=== PATIENT | male | born 2005 | race Caucasian/White ===

== ENCOUNTER → 2025-02-07 18:20 | Outpatient (BNV) | payer OTHER, SELFPAY | PROVIDERS: Visit Provider Radiology Diagnostic Radiology | DX: S73.192A Other sprain of left hip, initial encounter (principal) | CPT/HCPCS: 73721 ==

== ENCOUNTER 2025-02-07 19:16 | Outpatient (REF) | payer OTHER, SELFPAY ==
--- NOTE | ~2025-02-07 | MR_ITS ---
CLINICAL HISTORY: SPORT INJURY LEFT HIP; STRONG MR left hip without gadolinium Comparison: None provided Findings: No acute fracture or pathologic bone lesion. No femoral neck bony protuberances. Normal acetabular version. No effusion. Irregular high T2 signal intensity involves the anterosuperior labrum with paralabral cyst formation. No tendon or muscle abnormalities. IMPRESSION: Left hip labral tear. This document has been electronically signed by: Tamera Mondragon MD on 02/07/2025 20:43:43
--- OUTSIDE RECORDS SUMMARY | 2025-02-07 19:25 | XMS_ITS | Encounter Summary ---
Author Organization [facility] Address [address] [place] [address] Phone Care Team Providers Care Power Equipment Mechanics Instructor Name Role Phone Antione Jeter MD Primary Care Provide r Antione Jeter MD Unavailable Encounter Details Date Type Department Care Team (Late st Contact Info) Description 01/03/2025 Orders Only [facility] Pediatrics [address] [facility], [address] [place], [place] [phone] Antione Jeter MD [address] [place] [address] [email or web address] Social History Tobacco Use Types Packs/Day Years Used Date Smoking Tobacco: Never Smokeless Tobacco: Never Alcohol Use Standard Drinks/Week Comments Never 0 (1 standard drink = 0.6 oz pur e alcohol) Education Answer Date Recorded Are you interested in more education? Not on heather e 10/06/2022 Are you concerned about learning? Not on file 10/06/2022 No 10/06/2022 No 10/06/2022 Digital Access Answer Date Recorded No 11/01/2022 No 11/01/2022 Reliable internet access at home? Not on file 11/01/2022 Device with a working camera? Not on file Intimate Partner Violence Answer Date R ecorded Are you denied basic needs s uch as food, clothing, or medical care? No 10/16/2024 In the past 12 months have y ou been in a relationship with a person who hurts, threatens, or tries to control you? No 10/16/2024 Are you denied basic needs s uch as food, clothing, or medical care? No 10/16/2024 In the past 12 months have y ou been in a relationship with a person who hurts, threatens, or tries to control you? No 10/16/2024 Sex and Gender Information Value Date Recorded Sex Assigned at Not on file Legal Sex Male 8:03 PM EST Gender Identity Not on file Sexual Orientation Not on file documented as of this encounter Plan of Treatment Not on file documented as of this encounter Visit Diagnoses Not on filedocumented in this encounter Care Teams Power Equipment Mechanics Instructor Relationship Specialty Start Date End Date Antione Jeter MD [address] [place] [address] [email or web address] PCP - General Pediatrics 04/04/18 Antione Jeter MD [address] [place] [address] [email or web address] Insurance Assigned Provider 09/16/23 documented as of this encounter Additional Source Comments The information contained in this document represents components of the legal health record. It is not the complete legal health record.[facility]
--- OUTSIDE RECORDS SUMMARY | 2025-02-07 19:25 | XMS_ITS | Encounter Summary ---
Author Organization [facility] Address [address] [place] [address] Phone Care Team Providers Care Manager Program Name Role Phone Antoine Jeter MD Primary Care Provide r Antione Jeter MD Unavailable Encounter Details Date Type Department Care Team (Late st Contact Info) Description 10/16/2024 Procedure Pass [facility] [address] [place] [id number] Social History Tobacco Use Types Packs/Day Years [...] on filedocumented in this encounter Care Teams Manager Program Relationship Specialty Start Date End Date Antione Jeter MD [address] [place] [address] [email or web address] PCP - General Pediatrics 04/04/18 Antione Jeter MD [address] [place] [address] [email or web address] Insurance Assigned Provider 09/16/23 documented as of this encounter Additional Source Comments The information contained in this document represents components of the legal health record. It is not the complete legal health record.[facility]
--- OUTSIDE RECORDS SUMMARY | 2025-02-07 19:25 | XMS_ITS | Encounter Summary ---
Author Organization [facility] Address [address] [facility] [address] [place] [phone] Phone Care Team Providers Care Tie In Hand Name Role Phone Antione Jeter MD Primary Care Provide r Antione Jeter MD Unavailable Encounter Details Date Type Department Care Team (Late st Contact Info) Description 06/08/2020 Procedure Pass [facility] [address] [place] [address] Social History Tobacco Use Types Packs/Day Years Used Date Smoking Tobacco: Never Smokeless Tobacco: Never Alcohol Use Standard Drinks/Week Comments Never 0 (1 standard drink = 0.6 oz pur e alcohol) Sex and Gender Information Value Date Recorded Sex Assigned at Not on file Legal Sex Male 8:03 PM EST Gender Identity Not on file Sexual Orientation Not on file documented as of this encounter Plan of Treatment Not on file documented as of this encounter Visit Diagnoses Not on filedocumented in this encounter Care Teams Tie In Hand Relationship Specialty Start Date End Date Antione Jeter MD [address] [place] [address] [email or web address] PCP - General Pediatrics 04/04/18 Antione Jeter MD [address] [place] [address] [email or web address] Insurance Assigned Provider 09/16/23 documented as of this encounter Additional Source Comments The information contained in this document represents components of the legal health record. It is not the complete legal health record.[facility]
--- OUTSIDE RECORDS SUMMARY | 2025-02-07 19:25 | XMS_ITS | Clinical Summary ---
Author Organization [facility] [email or web address] Address [address] [facility] [place] [address] Care Team Providers Care Shredder Tender Peat Name Role Phone Unavailable Primary Care Provider Unavailabl e Allergies No known active allergies Medications No known medications Social History Tobacco Use Types Packs/Day Years Used Date Smoking Tobacco: Never Assessed Sex and Gender Information Value Date Recorded Sex Assigned at Not on file Legal Sex Male 7:22 AM EDT Gender Identity Not on file Sexual Orientation Not on file Last Filed Vital Signs Vital Sign Reading Time Taken Comments Blood Pressure - - Pulse 75 10/08/2020 4:19 PM EDT Temperature 36.9 C (98.5 F) 10/08/2020 4:19 PM EDT Respiratory Rate - - Oxygen Saturation 100% 10/08/2020 4:19 PM EDT Inhaled Oxygen Concentration - - Weight - - Height - - Body Mass Index - - Plan of Treatment Health Maintenance Due Date Last Done Comments Depression: Screening Annually using PHQ-2/9 in Adults 18 yrs or above (or HM Modifier)([facility]) 2022 Hepatitis C Virus Infection in Adolescents and Adults: Screening (or Modifier) ([facility]) 2022 SDOH Screening Reminder: Annually for all adults ([facility]) 2022 Tobacco Smoking Cessation: i n Adults excluding Women: Behavioral and Pharmacotherapy Interventions ([facility]) 2022 COVID-19 Vaccine Screening: Initial Series and Booster Status ([facility]) (2023- season) 2024 Flu Vaccination: Yearly for ages 18mos through 64 years (or Modifier)([facility]) 01/10/2025 DTaP/Tdap/Td Vaccines ([facility]) (7 - Td or Tdap) 04/01/2025 04/01/2015, 05/15/2009, 06/23/2005, Additional history exists Zoster/Shingles Vaccine Series Screening: Adults aged 18+ yrs (or HM Modifiers)([facility] ) (1 of 2) 2054 03/25/2009, 03/24/2005 Pneumococcal Vaccination Screening: Pts 0-19 & 19-49 yrs of age ([facility] ) Aged Out No longer eligible based on patient's age to complete this topic Medical Devices Not on file Insurance [facility]
--- OUTSIDE RECORDS SUMMARY | 2025-02-07 19:25 | XMS_ITS | Clinical Summary ---
Author Organization [facility] Address [address] [place] [address] Phone Care Team Providers Care Tool Polisher Name Role Phone Antione Jeter MD Primary Care Provide r Antione Jeter MD Unavailable Allergies Active Allergy Reactions Criticality Noted Date Comments Pollen Extracts 01/22/2016 ENVIRONMENTAL ALLERGIES Medications cetirizine (ZYRTEC) 10 MG tablet Take 10 mg by mouth daily. Active sertraline (ZOLOFT) 50 MG tabletIndicatio ns:anxiety with depression Take by mouth daily. Indications: anxiousness associated with depression Active buPROPion (WELLBUTRIN XL) 300 MG ER 24 hr tabletIndicatio ns:anxiety with depression Take 300 mg by mouth daily. Indications: anxiousness associated with depression Active acetaminophen (TYLENOL) 325 mg tablet Take 2 tablets (650 mg total) by mouth every 6 (six) hours as needed for pain (specific location in comments). 5 Active ibuprofen (ADVIL,MOTRIN) 200 MG tablet Take 2 tablets (400 mg total) by mouth every 6 (six) hours as needed for pain (specific location in comments). 5 Active betamethasone valerate 0.1 % ointmentIndicat ions:Eczema of both hands Apply topically 2 (two) times a day. Use on the hands for the next 7-14 days as needed for itchy rash 45 g Active Active Problems Problem Noted Date Diagnosed Date Anxiety and depression 01/06/2025 Assessment & Plan (01/06/2025 5:36 PM EDT): Managed by outside psych Well managed on wellbutrin and zoloft Seasonal allergies 04/23/2019 Encounters Date Type Department Care Team Description 01/28/2025 12:40 PM EDT Telemedicine [facility] [address] [place] [address] Perez Ann MD Eczema of both hands (Primary Dx) 01/06/2025 3:00 PM EDT Office Visit [address], [address] [address] Petra Roldan MD Well adolescent visit (Primary Dx); Screening examination for STI; Need for vaccination; Anxiety and depression 01/03/2025 Orders Only [facility] [address] [facility], [facility] [address] [place] [address] Antione Jeter MD 01/02/2025 Orders Only [facility] [address] [facility], [address] [address] Antione Jeter MD 11/27/2024 10:50 AM EDT Office Visit [address], [address] [address] Petra Roldan MD Tinea cruris (Primary Dx) from Last 3 Months Immunizations Immunization Administration Dates Next Due COVID-19 (Pre-04/03) Pfizer Vaccine, mRNA, PF 10/10/2020,09/19/2020 DTaP 05/15/2009, 6,2004,07/29,2004 [id number] FORMULATION 05/15/2009,03/12 HPV9 05/02/2018,03/30/2017 Hepatitis A, Unspecified 04/02/2013,04/03/2012 Hepatitis B 2004, 5,2004,03/25 Hib, unspecified formulation 06/23/2005, 2004,2004,05/28 IPV 05/15/2009, 5,2004,05/28 Influenza Quadrivalent Prese rvative Free IM 04/08/2022,03/26/2021,03/24/2020,04/23,05/02/2018,06/10/2016 Influenza quadrivalent nasal 03/07/2014, 04/02/2013,04/03/2012,04/05,04/27/2010 Influenza, Unspecified Formulation 04/01,05/15/2009,03/25/2008,04/18,03/30/2006 MMR 03/25/2009,06/23/2005 Meningococcal MCV4P 03/24/2020,04/01/2015 Pneumococcal conjugate PCV13 03/24/2005, 2004,2004,05/28 Tdap 01/06/2025,04/01/2015 Varicella 03/25/2009,03/24/2005 Family History Medical History Relation Comments Hearing loss Father Hypertension Father Relation Status Comments Brother Alive Father Alive Mother Alive Sister Alive Social History Tobacco Use Types Packs/Day Years [...] Sign Reading Time Taken Comments Blood Pressure 102/60 01/06/2025 3:11 PM EDT Pulse 71 10/16/2024 5:15 PM EDT Temperature 37.3 C (99.1 F) 10/16/2024 5:00 PM EDT Respiratory Rate 18 10/16/2024 5:15 PM EDT Oxygen Saturation 96% 10/16/2024 5:15 PM EDT Inhaled Oxygen Concentration - - Weight 93.4 kg (206 lb) 01/06/2025 3:11 PM EDT Height 184 cm (6' 0.44 ) 01/06/2025 3:11 PM EDT Body Mass Index 27.6 01/06/2025 3:11 PM EDT Plan of Treatment Health Maintenance Due Date Last Done Comments MENINGOCOCCAL VACCINES (B) ( 1 of 2 - Standard) 2020 DEPRESSION SCREENING 12/25/2023 12/24/2022 DEVELOPMENTAL/BEHAVIORAL SCR EENING (PHQ, PSC, or SWYC) 12/25/2023 12/24/2022, 12/24/2022 COVID-19 VACCINE (2023-2 5 season) 2024 05/26/2021, 10/10/2020, 09/19/2020 INFLUENZA VACCINE (#1) 2025 2, 03/26/2021, 03/24/2020, Additional history exists SMOKING Hx and SMOKELESS TOB ACCO SCREENING 10/16/2025 10/16/2024 COMBINED DTaP,Tdap,Td (8 - T d or Tdap) 01/06/2035 01/06/2025, 04/01/2015, 05/15/2009, Additional history exists PNEUMOCOCCAL VACCINES (0-49 years) Completed 03/24/2005, 2004, 2004, Additional history exists HIB VACCINES Completed 06/23/2005, 09/11, 2004, Additional history exists MMR VACCINES Completed 03/25/2009, 06/23/2005 VARICELLA VACCINES Completed 03/25/2009, 03/24/2005 HEPATITIS A VACCINES Completed 04/02/2013, 04/03/20 HPV VACCINES Completed 05/02/2018, 03/30/2017 MENINGOCOCCAL VACCINES (ACWY) Completed 03/24/2020, 04/01/2015 ADOLESCENT UNIVERSAL LIPID SCREENING Completed 01/08/2024 HEPATITIS C SCREENING Completed 10/16/2024 HIV ONE-TIME SCREENING (18-6 5 YEARS) Completed 10/16/2024 Medical Devices Not on file Procedures Procedure Name Priority Date/Time Associated Diagnosis Comments CHLAMYDIA TRACHOMATIS AND NEISSERIA GONORRHOEAE NUCLEIC ACID DETECTION Routine 01/06/2025 3:39 PM EDT Screening examination for STI HEPATITIS C VIRAL LOAD (PCR) Routine 10/16/2024 11:48 AM EDT LIPID PANEL Routine 01/08/2024 4:57 PM EDT Annual physical exam from Last 3 Months or Most Recently Relevant to Health Maintenance Results * Chlamydia trachomatis and Neisseria gonorrhoeae Nucleic Acid Amplification (01/06/2025 3:39 PM EDT) C.TRACHOMATIS, AMP Chlamydia trachomatis (CT) DNA NOT DETECTED Chlamydia trachomatis (CT) DNA NOT DETECTED [facility] Comment: This test is not recommended for evaluation of suspected sexual abuse or for other medico-legal indications This assay should not be used to determine therapeutic success as DNA may persist after appropriate antimicrobial therapy. This test has not been evaluated in patients younger than 14 years of age. Penile and Urethral specimen are not approved specimen types, interpret results with caution. Specimen type (C. Trachomatis DNA) URINE [facility] N.Gonorrhoeae, AMP Neisseria Gonorrhoeae (NG) DNA NOT DETECTED Neisseria Gonorrhoeae (NG) DNA NOT DETECTED [facility] Comment: This test is not recommended for evaluation of suspected sexual abuse or for other medico-legal indications This assay should not be used to determine therapeutic success as DNA may persist after appropriate antimicrobial therapy. This test has not been evaluated in patients younger than 14 years of age. Penile and Urethral specimen are not approved specimen types, interpret results with caution. Specimen type URINE [facility] Urine 01/06/2025 3:39 PM EDT 01/06/2025 9:38 PM EDT Petra Roldan MD NON CULTURE MICROBIOLOGY Final Result Performing Organization Address [facility] Co de Phone Number [address] [address] * Hepatitis C viral load (PCR) (10/16/2024 11:48 AM EDT) [facility] HCV RNA PCR Not Detected Not Detected IU/mL [facility] Comment: (NOTE) Assay Range: 15-100,000,000 IU/ml In rare instances, there might be a 1.0 - 1.5 log increase measured viral load observed in individuals with genotype 3a and 4. Please refer any questions to the [facility] at extension [phone]. This is a quantitative assay utilizing real-time PCR technology. Results of this test may be clinically useful in monitoring a patient's clinical course or response to antiviral therapy but should not be used to make the diagnosis of HCV infection. A test result of less than the lower limit of quantification (LLoQ)(<15 IU/mL) should be interpreted as HCV RNA not quantifiable but does not exclude the diagnosis of HCV infection. 10/16/2024 11:4 8 AM EDT 10/16/2024 8:56 PM EDT Lulu Rhodes MD NON CULTURE MICROBIOLOGY Final R esult Performing Organization Address [facility] Co de Phone Number [address] [address] * Lipid panel (01/08/2024 4:57 PM EDT) [facility] HDL 59 35 - 100 mg/dL [facility] CHOLESTEROL 146 <200 mg/dL [facility] TRIGLYCERIDES 119 40 - 150 mg/dL [facility] LDL 63 50 - 129 mg/dL [facility] CARDIAC RISK RATIO 2.5 0.0 - 5.0 M [facility] NON-HDL CHOLESTEROL 87 mg/dL [facility] Comment:NCEP ATP III guideli marly suggest a non-HDL cholesterol goal 30 mg/dl higher than the patient-specific LDL goal. Blood 01/08/2024 4:57 PM EDT 01/08/2024 5:05 PM EDT Antione Jeter MD LAB BLOOD ORDERABLES Final Result [facility] [address] [place] [address] from Last 3 Months or Most Recently Relevant to Health Maintenance Insurance [employer] [place] [id number] [employer] [employer] [employer] [employer] [employer] [facility] [employer] [employer] [employer] FAM[employer] Care Teams Tool Polisher Relationship Specialty Start Date End Date Antione Jeter MD [address] [place] [address] [email or web address] PCP - General Pediatrics 04/04/18 Antione Jeter MD [address] [place] [address] [email or web address] Insurance Assigned Provider 09/16/23 Additional Source Comments The information contained in this document represents components of the legal health record. It is not the complete legal health record.[facility]
== END 2025-02-07 19:17 | disposition home or self-care (01) ==
LOC: HO.MRI 19:16
PROVIDERS: Visit Provider Student in an Organized Health Care Education/Training Program
DX: M25.552 Pain in left hip (principal)
CPT/HCPCS: 73721